=== PATIENT | male | born 1985 | race Caucasian/White ===

== ENCOUNTER → 2016-08-16 | Outpatient (CLI) | payer MEDICARE, OTHER ==
--- NOTE | ~2016-08-16 | MR113 ---
[facility] A Service of [facility] RADIOLOGY TEXT RESULTS PATIENT: JOE DOBSON LOCATION: [facility] : 81 UNIT #: [id number] AGE: [address]: Kurt Elaine IV, MD SEX: M ORDER DR: [id number] [place] [id number] MR#: [id number] Acc #: [id number] NAME: JOE DOBSON. : 1985 SEX: M STUDY DATE/TIME: 08/16/2016 13:57 UNIT: [facility] ROOM: STUDY DESCRIPTION: MR Lumbar Wo Contrast Attending Physician: Kurt Elaine M.D. Referring Physician: Kurt Elaine M.D. Ordering Physician: Kurt Elaine M.D. Primary Care Physician: Generic Doctor Not In System MRI CENTER REPORT This report is preliminary unless electronic signature is present. EXAM Lumbar spine MRI no contrast HISTORY 3-month history of increasing low back pain radiating to left leg. COMPARISON Prior MRI 10/19/2014. PROCEDURE Routine unenhanced lumbar spine MRI. FINDINGS Alignment is normal. Bone marrow signal is normal. The distal cord and conus are normal in position and appearance and the paraspinous soft tissues are normal. At L1-2, there is a central slightly upward disc extrusion. It causes mild canal stenosis, primarily left-sided, and there is borderline left and no right foraminal stenosis. At L2-3, there is a slight disc bulge but no canal stenosis. There is perhaps borderline right and no left foraminal stenosis. At L3-4, there is minimal disc degeneration but no bulge or protrusion or canal or foraminal stenosis. At L4-5, there is a large central disc extrusion. It causes at least moderate canal stenosis primarily left-sided. There is minimal if any bilateral foraminal stenosis. At L5-S1, there is a slight disc bulge but no canal or foraminal stenosis. [facility] A Service of [facility] RADIOLOGY TEXT RESULTS PATIENT: JOE DOBSON LOCATION: [facility] : 81 UNIT #: [id number] AGE: [address]: Kurt Elaine IV, MD SEX: M ORDER DR: IMPRESSION Disc extrusion at L4-5 which is large causing moderate primarily left-sided canal stenosis, and smaller disc extrusion at L1-2 causing mild primarily left-sided canal stenosis. See above for further details. Dictated by... Star Sanchez M.D. THIS IS AN ELECTRONICALLY VERIFIED REPORT Star Sanchez M.D. at 08/23/2016 5:37 PM BO/dave TD: 08/19/2016 14:13 JOB #: [id number] MRI CENTER REPORT Page 1 of 1
== END | disposition home or self-care (01) ==
LOC: SMRI 13:06
DX: M51.16 Intervertebral disc disorders with radiculopathy, lumbar region (principal); M48.06 Spinal stenosis, lumbar region; R20.2 Paresthesia of skin
CPT/HCPCS: 72148